=== PATIENT | female | born 2000 | race African-American/Black ===

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

== ENCOUNTER 2022-05-24 13:52 | Emergency (ER) | payer OTHER ==
[2022-05-24 14:59] LABS: #Basophils 0.1 thou/uL (0.0-0.2); #Eosinphils 0.1 thou/uL (0.0-0.7); #Lymphocytes 2.3 thou/uL (1.20-3.40); #Monocytes 0.3 thou/uL (0.11-0.59); #Neutrophils 3.2 thou/uL (1.40-6.50); %Basophils 1.2 % (0.0-1.0); %Eosinophils 1.4 % (0.0-10.0); %Monocytes 4.9 % (0.0-4.0); %Neutrophils 54.6 % (31.0-61.0); Hemoglobin 14.1 g/dL (12.0-16.0); Mean Corpuscular HGB CONC 31.6 g/dL (32.0-36.0); Mean Corpuscular Hemoglobin 26.8 pg (25.0-35.0); Platelet Count 282 thou/uL (130-400); RBC Distribution Width 12.2 % (11.5-14.5); Red Blood Cell (RBC) Count 5.26 mill/uL (4.00-5.20); White Blood Cell (WBC) Count 5.9 thou/uL (4.8-10.8)
[2022-05-24 15:03] LABS: Bilirubin Negative (Negative); Glucose, Urine (Dipstick) Normal (Negative); Ketone, Urine Negative (Negative); Leukocyte 25 Leu/uL (Negative); Nitrite 1+ (Negative); Protein, Urine (Dipstick) 20 mg/dL (Neg-Trace); Specific Gravity, Urine 1.016 (1.002-1.036); Urobilinogen Normal mg/dL (Less than 2); pH, Urine 7.5 (5.0-9.0)
[2022-05-24 15:04] LABS: Bacteria/HPF 4+ HPF (None Seen); Blood, Urine Negative (Negative); Clarity Cloudy (Clear); Pregnancy Test - Urine (BHCG) Negative (Negative); RBC/HPF 0-3 HPF (0-3); Specific Gravity 1.016 (1.002-1.036); Squamous Epithelial 0-3 HPF (0-3)
[2022-05-24 15:05] LABS: Pregu Control Background? CLEAR/WHITE (CLR/WHITE); Pregu Control Bar Appear? YES (CONTROL BAR)
[2022-05-24 15:07] LABS: BHCG - Serum Negative (NEGATIVE); Pregs Control Background? CLEAR/WHITE (CLR/WHITE); Pregs Control Bar Appear? YES (CONTROL BAR)
[2022-05-24 15:15] LABS: ALT (SGPT) 13 U/L (8-55); AST (SGOT) 17 U/L (5-30); Albumin 4.7 g/dL (3.5-5.0); Alkaline Phosphatase 78 U/L (40-100); Anion Gap 15 mmol/L (10-20); BUN (Urea Nitrogen) 6 mg/dL (8.4-21.0); Bilirubin, Total 0.8 mg/dL (0.2-1.2); CK (CPK) 118 U/L (29-168); Calc. Creatinine Clearance 0 mL/min (70-130); Calcium 10.1 mg/dL (7.8-10.44); Carbon Dioxide 22 mmol/L (22-29); Chloride 108 mmol/L (98-107); Estimated GFR 112; Globulin 3.3 g/dL (2.4-3.5); Glucose 76 mg/dL (70-105); Lipase 17 U/L (8-78); Magnesium 2.1 mg/dL (1.7-2.2); Potassium 3.8 mmol/L (3.5-5.1); Sodium 141 mmol/L (136-145)
== END 2022-05-24 16:00 | disposition home or self-care (01) ==
LOC: ERS 13:52
DX: R55 Syncope and collapse (principal); N39.0 Urinary tract infection, site not specified
CPT/HCPCS: 80053; 81003; 81015; 81025; 82550; 83690; 83735; 84703; 85025; 93005

== ENCOUNTER 2022-08-29 16:26 | Emergency (ER) | payer OTHER ==
[2022-08-29] MEDS ORDERED: Ondansetron ODT 4 MG TAB ONE (17:11)
[2022-08-29 17:51] LABS: SARS-CoV-2 NAA Rapid Test Not Detected (NotDetected)
== END 2022-08-29 18:11 | disposition home or self-care (01) ==
LOC: ERS 16:26
DX: J06.9 Acute upper respiratory infection, unspecified (principal); Z20.822 Contact with and (suspected) exposure to COVID-19
CPT/HCPCS: 87081; 87430; 99283; Q0162

== ENCOUNTER 2022-12-30 22:19 | Emergency (ER) | payer OTHER ==
[2022-12-31] MEDS ORDERED: Ketorolac Tromethamine 30 MG/ML VIAL ONE (01:00)
== END 2022-12-31 01:08 | disposition home or self-care (01) ==
LOC: ERS 22:19
DX: M77.9 Enthesopathy, unspecified (principal); R21 Rash and other nonspecific skin eruption
CPT/HCPCS: 99282; J1885

== ENCOUNTER 2023-12-03 18:17 | Emergency (ER) | payer OTHER, SELFPAY | END 2023-12-03 19:05 | disposition home or self-care (01) | LOC: ERS 18:17 | DX: M79.10 Myalgia, unspecified site (principal); M79.662 Pain in left lower leg; M79.661 Pain in right lower leg | CPT/HCPCS: 99283 ==

== ENCOUNTER 2024-03-30 10:33 | Emergency (ER) | payer SELFPAY | END 2024-03-30 12:57 | disposition home or self-care (01) | LOC: ERS 10:33 | DX: S60.562A Insect bite (nonvenomous) of left hand, initial encounter (principal); S60.561A Insect bite (nonvenomous) of right hand, initial encounter; S30.861A Insect bite (nonvenomous) of abdominal wall, initial encounter; W57.XXXA Bitten or stung by nonvenomous insect and other nonvenomous arthropods, initial encounter | CPT/HCPCS: 36415; 86695; 86696; 99282 ==